=== PATIENT | male | born 1990 | race African-American/Black ===

== ENCOUNTER 2025-01-31 16:40 | Emergency (ER) | payer OTHER, SELFPAY ==
--- NOTE | 2025-01-31 16:41 | ED.SKABFB ---
HPI - Skin/Abscess/Foreign Bdy General Chief complaint: Skin/Abscess/Foreign Body Stated complaint: rash Time Seen by Provider: 01/31/25 16:52 Source: patient, RN notes reviewed and old records reviewed Mode of arrival: ambulatory Limitations: no limitations History of Present Illness HPI narrative: 34-year-old male presents to the [facility] with concerns of a rash that started at least a month ago. States that started in the right axilla. States that he had switched deodorants. Has a swollen lymph node in the axilla as well that is nontender, movable. No redness or swelling noted otherwise. Skin colored very small dry a rash. States a couple weeks ago it has moved up into his neck and to his face. States he tried using a cream he has been prescribed in the past. Denies any new creams ointments lotions or detergents. Reports a history of eczema Onset (ago): month(s) (1+) Related Data Allergies Allergy/AdvReac Type Severity Reaction Status Date / Time citric acid Allergy Unknown Unknown Verified 01/31/25 16:42 Review of Systems Review of Systems: All systems reviewed & are unremarkable except as noted in HPI and below Constitutional: Constitutional: Reports no additional constitutional complaints Respiratory: Respiratory: Reports no additional respiratory complaints, Denies chest congestion, Denies cough and Denies dyspnea Musculoskeletal: Musculoskeletal: Reports no additional musculoskeletal complaints Integumentary/Breasts: Skin/Breast: Reports as per HPI PMFSH Comments At the time of my signature, I reviewed and agree with the nursing past medical, surgical, social, and family history. There is no relevant family history pertinent to the patient complaint. Exam Const: General: cooperative, healthy appearing, comfortable, no acute distress, well developed, alert and well nourished Nutritional Appearance: well nourished Orientation/consciousness: patient oriented x3 Limitations: no limitations HENMT: Head: normal to inspection Mouth: Yes Normal oral and palatal mucosa present, Yes lip normal, Yes tongue normal and Yes moist mucous membranes Eyes: General: appearance normal, both eyes and all related structures Alignment and Position: alignment normal Neck: Neck: normal visual inspection, full ROM, no lymphadenopathy and no meningeal signs Chest: Chest palpation & inspection: normal inspection of the chest Resp: Effort & Inspection: normal respiratory effort and able to speak in complete sentences Auscultation: clear to auscultation bilaterally, no crackles, no rales, no rhonchi and no wheezes Cardio: Rate: regular rate Skin: General skin exam: normal color and no rashes or lesions noted Rashes: rashes noted Other: Chicken like texture to the skin of the axilla and face Neuro: General: patient oriented x3, gait normal, moves all extremities and no meningeal signs Cognition (Neuro): normal cognition Speech: normal speech Gait exam (Neuro): Normal gait present Extrem: General: normal to inspection, full ROM, capillary refill normal and normal gait Psych: Appearance: grossly normal and well kempt Mental Status: mental status grossly normal Speech and movement: Normal speech and movement present and Clear speech present Affect: normal affect Attitude: cooperative Course Course Level of Care: Express Care Visit Vital Signs Vital signs: Vital Signs Temperature 97.5 F L 01/31/25 16:52 Pulse Rate 90 01/31/25 16:52 Respiratory Rate 20 01/31/25 16:52 Blood Pressure 124/75 01/31/25 16:52 Pulse Oximetry 100 01/31/25 16:52 Oxygen Delivery Room Air 01/31/25 16:52 Temperature 97.5 F L 01/31/25 16:52 Pulse Rate 90 01/31/25 16:52 Respiratory Rate 20 01/31/25 16:52 Blood Pressure 124/75 01/31/25 16:52 Pulse Oximetry 100 01/31/25 16:52 Oxygen Delivery Room Air 01/31/25 16:52 reviewed MDM MDM Narrative Medical decision making narrative: patient sitting in exam room. Patient is nontoxic, vitals are stable. Patient presents with approximately 1 month history a itchy dry skin. No signs of cellulitis. Patient without any other symptoms. Will attempt an [id number] steroid, discussed using creams better hypoallergenic, phone number for Dermatology given. Patient appropriate for outpatient treatment with close follow-up Discharge instructions reviewed with patient, as well as provided in writing per nursing staff. The instructions also include specific and strict return/GO TO THE ER as well as f/u information. All questions have been answered, and the patient deny any further questions with discharge and discharge plan. Some parts of this dictation were generated by voice recognition software and may contain typographical and/or grammatical inaccuracies. Differential Diagnosis Differential Diagnosis: Differential diagnostic considerations for skin/abscess/foreign body issues include abscess of skin or subcutaneous tissue, viral exanthem, dermatophytosis, urticaria, keratosis, allergic reaction to drug, cellulitis, eczema, insect bites, impetigo, contact dermatitis, vasculitis. Discharge Plan Discharge Clinical Impression: Dermatitis Patient Disposition: Home Condition: Stable Instructions: Antibiotic Form, Eczema (ED), Dermatitis (ED) Additional Instructions: The most important part of your care is follow up with Primary care provider. follow-up with dermatology, Andre cortez Take Benadryl 25 mg every 8 hours for itching Take Zyrtec every day Take Pepcid 20mg daily for 7 days Take the steroids starting in the morning Avoid hot showers, Take cool showers. Hot showers will make rashes worse Apply cool compresses every 2-3 hours for 15 minutes Go to the ER for new or worsening symptoms such as shortness of breath. Patient Language: Greek Prescriptions: New prednisone 20 mg tablet See Rx Instructions .Route .COMPLEX Qty: 18 0RF Rx Instructions: Take 60 mg daily for 3 days, 40 mg daily for 3 days, 20 mg daily for 3 days Follow-up/Referrals: UNKNOWN,DOCTOR [Non-Staff] Stand Alone Forms: Work/School Release IP Time of Disposition: 17:07
[2025-01-31 16:52] VITALS: BP 124/75; PULSE 90; RESP 20; TEMP 36.4; O2SAT 100
== END 2025-01-31 17:21 | disposition home or self-care (01) ==
PROVIDERS: Emergency Provider Nurse Practitioner; PCP Family Medicine
DX: L30.9 Dermatitis, unspecified (principal)
CPT/HCPCS: 99203; G0463